=== PATIENT | female | born 1945 | race Caucasian/White ===

== ENCOUNTER 2017-04-09 15:15 | Inpatient (IN) | payer MEDICARE, MEDICAID ==
[2017-04-09 15:46] LABS: pH 7.42 (7.35-7.45)
[2017-04-09 15:47] LABS: ABG SOURCE Arterial; ALLEN TEST PASS; BE(B) 11.6 mEq/L (-3.0-3.0); CRITICAL VALUES REPORTED BY PW; FIO2 21; HCO3 33.6 mEq/L (20.0-26.0)
--- NOTE | 2017-04-09 15:50 | ED Physician Chart ---
Chief Complaint/HPI - Patient Information Date Seen:: 04/09/17 Time Seen:: 15:40 Chief Complaint:: LEFT ANKLE PAIN History of Present Illness:: THIS IS A 72 YO FEMALE SENT FROM THE CUSTODIAL FOR AN EVALUATION OF HER LEFT ANKLE PAIN. THE ANKLE WAS INJURED THE PATIENT WAS BEING MOVED FROM THE BED TO THE CHAIR. SHE IS OBESE AND HAS LUNG DISEASE Allergies:: Allergies Allergy/AdvReac Type Severity Reaction Status Date / Time No Known Allergies Allergy Verified 09/08/16 22:11 Vitals:: Vital Signs - 8 hr 04/09/17 15:37 Temp 98.4 F HR 80 RR 17 BP 144/73 O2 Sat % 85 Historian:: Medical Records Review:: Nurse's Note Reviewed, Old Chart Reviewed, Transfer documents Reviewed Review of Systems - Review of Systems General/Constitutional: No fever, No chills, No weight loss, No weakness, No diaphoresis, No edema, No loss of appetite Skin: No skin lesions, No rash, No bruising Head: No headache, No light-headedness Eyes: No loss of vision, No pain, No diplopia ENT: No earache, No nasal drainage, No sore throat, No tinnitus Neck: No neck pain, No swelling, No thyromegaly, No stiffness, No mass noted Cardio Vascular: No chest pain, No palpitations, No PND, No orthopnea, No edema Pulmonary: SOB, No cough, No sputum, No wheezing GI: No nausea, No vomiting, No diarrhea, No pain, No melena, No hematochezia, No constipation, No hematemesis G/U: No dysuria, No frequency, No hematuria Musculoskeletal: Bone or joint pain (LEFT ANKLE TENDERNESS AND SWELLING.), No back pain, No muscle pain Endocrine: No polyuria, No polydipsia Psychiatric: No prior psych history, No depression, No anxiety, No suicidal ideation Hematopoietic: No bruising, No lymphadenopathy Allergic/Immuno: No urticaria, No angioedema Neurological: No syncope, No focal symptoms, No weakness, No paresthesia, No headache, No seizure, No dizziness, No confusion, No vertigo Past Medical History - Past Medical History Past Medical History: Asthma/COPD, PUD/GERD, Dementia Family History: None Social History: Non Smoker, No Alcohol, No Drug Use, Care Facility Surgical History: None Psychiatricy History: None Medication: Reviewed Family Medical History - Family Member Mother History Unknown: Yes Physical Exam - Physical Examination General/Constitutional: Awake, Well-developed, well-nourished, Alert, No distress, GCS 15, Non-toxic appearing, Ambulatory Other Gen/Cons comments:: CONFUSED Head: Atraumatic Eyes: Lids, conjuctiva normal, PERRL, EOMI Skin: Nl inspection, No rash, No skin lesions, No ecchymosis, Well hydrated, No lymphadenopathy ENMT: External ears, nose nl, Nasal exam nl, Lips, teeth, gums nl Neck: Nontender, Full ROM w/o pain, No JVD, No nuchal rigidity, No bruit, No mass, No stridor Respiratory: Nl effort/Exclusion, Clear to Auscultation, No Wheeze/Rhonchi/Rales Cardio Vascular: RRR, No murmur, gallop, rubs, NL S1 S2 GI: No tenderness/rebounding/guarding, No organomegaly, No hernia, Normal BS's, Nondistended, No mass/bruits, No McBurney tenderness : No CVA tenderness Extremities: Full ROM, normal strength in all extremities, No edema, Normal digits & nails Other Extremities comments:: THE LEFT ANKLE AREA IS TENDER WITH NORMAL ROM. THE LEFT KNEE IS DEFORMED. Neuro/Psych: Alert/oriented, DTR's symmetric, Normal sensory exam, Normal motor strength, Judgement/insight normal, Mood normal, Normal gait, No focal deficits Misc: normal gait, Normal back, No paraspinal tenderness Assessment - Assessment General Assessment: HYPOXEMIA, COPD, CONTUSION OF THE LEFT ANKLE. ED Septic Shock - . Is Septic Shock (SBP<90, OR Lactate>4 mmol\L) present?: No - <6hrs of presentation: Vital Signs: Vital Signs - 8 hr 04/09/17 15:37 Temp 98.4 F HR 80 RR 17 BP 144/73 O2 Sat % 85 Reassessment (Disposition) - Reassessment Reassessment Condition:: Improved - Diagnosis Diagnosis:: HYPOXEMIA CONTUSION OF THE LEFT ANKLE DEMENTIA - Patient Disposition Discharge/Transfer:: Acute Care w/in this hosp Admitting Medical Physician:: Carson Diaz Condition at Disposition:: Improved ED Discharge Plan - Patient Disposition Admit/Discharge/Transfer: Acute Care w/in this hosp Condition at Disposition: Improved
[2017-04-09 16:00] LABS: HEMATOCRIT 30.7 % (35.0-45.0); HEMOGLOBIN 9.9 gm/dL (11.7-16.1); MEAN CELL VOLUME 77.5 fl (81-100); MEAN CORPUSCULAR HEMOGLOBIN 24.9 pg (27.0-31.0); MEAN CORPUSCULAR HGB CONC 32.1 pg (28.0-36.0); MEAN PLATELET VOLUME 7.7 fl; NEUTROPHILE ABSOLUTE 1.9 Th/cmm (1.8-8.0); RED BLOOD COUNT 3.96 Mil/cmm (3.80-5.20); RED CELL DISTRIBUTION WIDTH 15.3 % (11.5-20.0)
[2017-04-09 16:08] LABS: PLATELET COUNT 228 Th/cmm (150-400); WHITE BLOOD COUNT 4.3 Th/cmm (4.8-10.8)
[2017-04-09 16:17] LABS: INR 0.95 (0.5-1.4); PROTHROMBIN TIME (TEST) 9.9 SECONDS (9.5-11.5)
[2017-04-09 16:23] LABS: ALB/GLOB RATIO 1.5 (1.0-1.8); ALKALINE PHOSPHATASE 65 U/L (34-104); ANION GAP 4.4 (7.0-16.0); BILIRUBIN,TOTAL 0.2 mg/dL (0.3-1.0); BUN - UREA NITROGEN 14 mg/dL (7-25); CARBON DIOXIDE 32.8 mEq/L (21.0-31.0); CHLORIDE 98 mEq/L (98-107); CREATININE - SERUM 0.5 mg/dL (0.6-1.2); GLUCOSE 120 mg/dL (70-105); POTASSIUM SERUM 4.2 mEq/L (3.5-5.1); SGOT 13 U/L (13-39); SGPT/ALT 7 U/L (7-52); SODIUM SERUM 131 mEq/L (136-145)
[2017-04-09 16:39] LABS: BAND NEUTROPHILE 2 % (0-10); BASOPHIL 3 % (0-3); EOSINOPHIL 7 % (0-5); MICROCYTOSIS 1+; NEUTROPHILS 50 % (40-80); PLATELET ESTIMATE ADEQUATE (NORMAL); TOTAL CELLS COUNTED 100
[2017-04-09] MEDS ORDERED: Maalox 30 mL Cup PO PRN (18:33)
[2017-04-09 18:50] LABS: URINE BILIRUBIN NEGATIVE (NEGATIVE); URINE BLOOD NEGATIVE (NEGATIVE); URINE COLOR YELLOW; URINE GLUCOSE (UA) NEGATIVE (NEGATIVE); URINE KETONE NEGATIVE (NEGATIVE); URINE PROTEIN NEGATIVE (NEGATIVE); URINE UROBILINOGEN 0.2 E.U./dL (0.2 - 1.0)
[2017-04-09 18:51] LABS: URINE BACTERIA MANY /hpf (NONE SEEN); URINE EPITHELIAL CELLS MANY /lpf (FEW); URINE RBC 0-2 /hpf (0-5); URINE WBC 25-50 /hpf (0-5)
[2017-04-09] MEDS ORDERED: Pneumococcal Vaccine 0.5 mL Vial IM ONE (19:03)
[2017-04-09] MEDS: D5-0.9%NS 1,000 ML IV SCH (19:08)
[2017-04-09] MEDS: Levofloxacin 500mg/100mL 500 MG/100 ML BAG IV SCH (20:50)
[2017-04-09] MEDS: methylPREDNISolone SS 40 mg Vial IVP SCH (20:59)
[2017-04-09] MEDS: Ipratropium Neb 0.5 mg/2.5 mL UD IH SCH (23:31)
[2017-04-09] MEDS: Albuterol Nebulizer 2.5mg/3mL HHN SCH (23:31)
[2017-04-10] MEDS: methylPREDNISolone SS 40 mg Vial IVP SCH ×3 (05:45→22:17)
[2017-04-10] MEDS: Ipratropium Neb 0.5 mg/2.5 mL UD IH SCH ×4 (07:01→20:02)
[2017-04-10] MEDS: Albuterol Nebulizer 2.5mg/3mL HHN SCH ×4 (07:01→20:02)
[2017-04-10] MEDS: Levothyroxine 0.1 Mg Tab PO SCH (07:03)
[2017-04-10] MEDS ORDERED: LEVOTHYROXINE SODIUM 300 MCG PO SCH (09:00)
[2017-04-10] MEDS ORDERED: Non-Formulary Item 1 EA (Tiotropium Bromide [Spiriva] 18 MCG) IH SCH (09:00)
[2017-04-10] MEDS: D5-0.9%NS 1,000 ML IV SCH (09:37)
--- NOTE | 2017-04-10 10:47 | Diagnostic Imaging Report ---
Portable chest x-ray HISTORY: Shortness of breath There is a very poor inspiration. Nonetheless, the heart appears enlarged. No focal pulmonary processes. No definite hilar or mediastinal abnormalities. IMPRESSION: 1. Allowing for a poor inspiration, no acute focal pulmonary processes 2. Cardiomegaly
--- NOTE | 2017-04-10 10:50 | Diagnostic Imaging Report ---
Left ankle (3 views, portable) HISTORY: Pain, trauma The exam demonstrates a comminuted fracture involving the distal fibula and lateral malleolus. Associated soft tissue swelling. Mild displacement. Periosteal reaction noted along the distal shaft of the fibula most likely related to old trauma. Small spur formation noted off the plantar aspect of the posterior calcaneus. IMPRESSION: 1. Comminuted mildly displaced fracture involving the distal fibula and lateral malleolus. 2. Deformity of the distal fibular shaft consistent with changes of old trauma.
--- NOTE | 2017-04-10 14:38 | Internal Medicine Prog Note ---
Internal Medicine Subjective - Subjective Service Date: 04/10/17 ([id number] hnp dictated) Internal Medicine Objective - Results Result Diagrams: 04/09/17 15:50 04/09/17 15:50 Recent Labs: Laboratory Last Values WBC 4.3 Th/cmm (4.8-10.8) L D 04/09/17 15:50 RBC 3.96 Mil/cmm (3.80-5.20) 04/09/17 15:50 Hgb 9.9 gm/dL (11.7-16.1) L 04/09/17 15:50 Hct 30.7 % (35.0-45.0) L 04/09/17 15:50 MCV 77.5 fl (81-100) L 04/09/17 15:50 MCH 24.9 pg (27.0-31.0) L 04/09/17 15:50 MCHC Differential 32.1 pg (28.0-36.0) 04/09/17 15:50 RDW 15.3 % (11.5-20.0) 04/09/17 15:50 Plt Count 228 Th/cmm (150-400) D 04/09/17 15:50 MPV 7.7 fl 04/09/17 15:50 Band Neutrophils % 2 % (0-10) 04/09/17 15:50 Neutrophils (Manual) 50 % (40-80) 04/09/17 15:50 Lymphocytes 27 % (20-50) 04/09/17 15:50 Monocytes 11 % (2-10) H 04/09/17 15:50 Eosinophils 7 % (0-5) H 04/09/17 15:50 Basophils 3 % (0-3) 04/09/17 15:50 Platelet Estimate ADEQUATE (NORMAL) 04/09/17 15:50 Microcytosis 1+ 04/09/17 15:50 RBC Morph Micro Appear ABNORMAL (NORMAL) 04/09/17 15:50 PT 9.9 SECONDS (9.5-11.5) 04/09/17 15:50 INR 0.95 (0.5-1.4) 04/09/17 15:50 PTT (Actin FS) 23.6 SECONDS (26.0-38.0) L 04/09/17 15:50 Specimen Source Arterial 04/09/17 15:39 Sample Site Right Radial 04/09/17 15:39 pH 7.42 (7.35-7.45) 04/09/17 15:39 pCO2 59.0 mmHg (35.0-45.0) H* 04/09/17 15:39 pO2 47.0 mmHg (80.0-100.0) L* 04/09/17 15:39 HCO3 33.6 mEq/L (20.0-26.0) H 04/09/17 15:39 Base Excess 11.6 mEq/L (-3.0-3.0) H 04/09/17 15:39 O2 Saturation 83.0 % (92.0-100.0) L 04/09/17 15:39 Jagjit Test PASS 04/09/17 15:39 Inspired O2 21 04/09/17 15:39 Critical Value PW 04/09/17 15:39 Sodium 131 mEq/L (136-145) L 04/09/17 15:50 Potassium 4.2 mEq/L (3.5-5.1) 04/09/17 15:50 Chloride 98 mEq/L (98-107) 04/09/17 15:50 Carbon Dioxide 32.8 mEq/L (21.0-31.0) H 04/09/17 15:50 Anion Gap 4.4 (7.0-16.0) L 04/09/17 15:50 BUN 14 mg/dL (7-25) 04/09/17 15:50 Creatinine 0.5 mg/dL (0.6-1.2) L 04/09/17 15:50 Est GFR ( Amer) > 60.0 ml/min (>90) 04/09/17 15:50 Est GFR (Non-Af Amer) > 60.0 ml/min 04/09/17 15:50 BUN/Creatinine Ratio 28.0 04/09/17 15:50 Glucose 120 mg/dL (70-105) H 04/09/17 15:50 Calcium 9.0 mg/dL (8.6-10.3) 04/09/17 15:50 Total Bilirubin 0.2 mg/dL (0.3-1.0) L 04/09/17 15:50 AST 13 U/L (13-39) 04/09/17 15:50 ALT 7 U/L (7-52) 04/09/17 15:50 Alkaline Phosphatase 65 U/L (34-104) 04/09/17 15:50 Troponin I < 0.01 ng/mL (0.01-0.05) L 04/09/17 15:50 Total Protein 6.0 gm/dL (6.0-8.3) 04/09/17 15:50 Albumin 3.6 gm/dL (3.7-5.3) L 04/09/17 15:50 Globulin 2.4 gm/dL 04/09/17 15:50 Albumin/Globulin Ratio 1.5 (1.0-1.8) 04/09/17 15:50 TSH 0.65 uIU/ml (0.34-5.60) 04/09/17 15:50 Urine Source CLEAN C 04/09/17 16:47 Urine Color YELLOW 04/09/17 16:47 Urine Clarity CLOUDY (CLEAR) H 04/09/17 16:47 Urine pH 8.0 04/09/17 16:47 Ur Specific [place] 1.010 (1.005-1.030) 04/09/17 16:47 Urine Protein NEGATIVE mg/dL (NEGATIVE) 04/09/17 16:47 Urine Glucose (UA) NEGATIVE mg/dL (NEGATIVE) 04/09/17 16:47 Urine Ketones NEGATIVE mg/dL (NEGATIVE) 04/09/17 16:47 Urine Blood NEGATIVE (NEGATIVE) 04/09/17 16:47 Urine Nitrate NEGATIVE (NEGATIVE) 04/09/17 16:47 Urine Bilirubin NEGATIVE (NEGATIVE) 04/09/17 16:47 Urine Urobilinogen 0.2 E.U./dL (0.2 - 1.0) 04/09/17 16:47 Ur Leukocyte Esterase LARGE (NEGATIVE) H 04/09/17 16:47 Urine RBC 0-2 /hpf (0-5) 04/09/17 16:47 Urine WBC 25-50 /hpf (0-5) H 04/09/17 16:47 Ur Epithelial Cells MANY /lpf (FEW) 04/09/17 16:47 Urine Bacteria MANY /hpf (NONE SEEN) 04/09/17 16:47 - Physical Exam Vitals and I&O: Vital Signs Temp 98.1 F 04/10/17 07:49 Pulse 92 04/10/17 07:49 Resp 18 07/18/17 08:00 BP 137/66 04/10/17 07:49 Pulse Ox 94 04/10/17 07:49 Intake & Output 04/09/17 04/10/17 04/10/17 18:59 06:59 18:59 Intake Total 100 1120 Balance 100 1120 Weight (lbs) 304 lb 304 lb 6.4 oz Intake: Intake, IV Amount 100 1000 D5-0.9%Ns 1,000 ml @ 80 1000 mls/hr IV .[id number] [facility] Rx #:[id number] Levofloxacin 500mg/100mL 100 500 mg In 100 ml @ 100 mls/hr IV Q24HR [facility] Rx#: [id number] Oral 120 Other: # Voids 2 # Bowel Movements 1 Stool Characteristics Soft Soft Formed Formed Active Medications: Current Medications Acetaminophen (Tylenol) 325 mg PO Q6HR PRN PRN Reason: Pain or Fever > 101 Stop: 06/08/17 18:31 Acetaminophen (Tylenol) 650 mg PO Q4HR PRN PRN Reason: Pain or Fever >101 Stop: 06/08/17 18:31 Al Hydrox/Mg Hydrox/Simethicone (Maalox) 30 ml PO Q6H PRN PRN Reason: Dyspepsia Stop: 06/08/17 18:32 Albuterol Sulfate (Albuterol 2.5mg/3ml Neb Ud) 2.5 mg HHN Q6H PRN PRN Reason: sob Stop: 06/08/17 18:31 Albuterol Sulfate (Albuterol 2.5mg/3ml Neb Ud) 2.5 mg HHN QIDRT [facility] Stop: 06/08/17 18:59 Last Admin: 04/10/17 12:28 Dose: 2.5 mg Aspirin (Ecotrin) 81 mg PO DAILY [facility] Stop: 06/09/17 08:59 Last Admin: 04/10/17 09:39 Dose: 81 mg Cholecalciferol (Vitamin D3) 1,000 iu PO DAILY [facility] Stop: 06/09/17 11:59 Last Admin: 04/10/17 11:48 Dose: 1,000 iu Dextrose/Sodium Chloride (D5-0.9%Ns) 1,000 mls @ 80 mls/hr IV .[id number] [facility] Stop: 06/08/17 18:44 Last Admin: 04/10/17 09:37 Dose: 80 mls/hr Levofloxacin (Levaquin Pb) 500 mg in 100 mls @ 100 mls/hr IV Q24HR [facility] Stop: 06/08/17 20:59 Last Infusion: 04/09/17 21:50 Dose: Infused Ipratropium [place] (Atrovent Neb 0.5mg/2.5ml) 0.5 mg IH QIDRT [facility] Stop: 06/08/17 18:59 Last Admin: 04/10/17 12:29 Dose: 0.5 mg Levothyroxine Sodium (Synthroid) 0.3 mg PO QDAC [facility] Stop: 06/09/17 07:29 Last Admin: 04/10/17 07:03 Dose: 0.3 mg Meclizine HCl (Antivert) 25 mg PO DAILY PRN PRN Reason: Nausea / Vomiting Stop: 06/08/17 18:32 Methylprednisolone Sodium Succinate (Solu-Medrol) 80 mg IVP Q8HR [facility] Stop: 06/08/17 20:59 Last Admin: 04/10/17 05:45 Dose: 80 mg Miscellaneous (Tiotropium [place] [Spiriva]) 18 mcg IH DAILY [facility] Stop: 06/09/17 08:59 Ondansetron HCl (Zofran) 4 mg IV Q8H PRN PRN Reason: Nausea / Vomiting Stop: 06/08/17 18:32 Risperidone (Risperdal) 0.5 mg PO BID [place] PRN Reason: Protocol Stop: 06/09/17 08:59 Last Admin: 04/10/17 09:39 Dose: 0.5 mg Sucralfate (Carafate) 1 gm PO ACHS [facility] Stop: 06/08/17 20:59 Last Admin: 04/10/17 11:44 Dose: 1 gm Zolpidem Tartrate (Ambien) 5 mg PO HS PRN PRN Reason: Insomnia Stop: 06/08/17 18:31 Last Admin: 04/09/17 21:00 Dose: 5 mg - Procedures Procedures: Procedures Procedure Code Date EGD BIOPSY SINGLE/MULTIPLE 35310 02/04/14 ESOPHAGOGASTRODUODENOSCOPY [EGD] W/CLOSED BIOPSY 45.16 02/04/14 NON-INVASIVE MECHANICAL VENTILATION 93.90 11/24/10 POS AIRWAY PRESSURE CPAP 83721 11/24/10 Internal Medicine Assmt/Plan - Assessment Assessment: COPD EXACERBATION S/P FALL CONTUSION ACUTE UTI CHRONIC BRONCHITIS GERD WITH ESOPHAGITIS MUSCULAR DYSTROPHY SCHIZOPHRENIA
[2017-04-10] MEDS: Levofloxacin 500mg/100mL 500 MG/100 ML BAG IV SCH (22:18)
[2017-04-11] MEDS: Albuterol Nebulizer 2.5mg/3mL HHN PRN (00:58)
[2017-04-11] MEDS: D5-0.9%NS 1,000 ML IV SCH ×2 (04:57→15:51)
[2017-04-11] MEDS: methylPREDNISolone SS 40 mg Vial IVP SCH ×3 (04:59→22:23)
[2017-04-11] MEDS: Levothyroxine 0.1 Mg Tab PO SCH (06:35)
[2017-04-11 07:02] LABS: HEMATOCRIT 29.9 % (35.0-45.0); HEMOGLOBIN 9.3 gm/dL (11.7-16.1); MEAN CELL VOLUME 78.9 fl (81-100); MEAN CORPUSCULAR HEMOGLOBIN 24.6 pg (27.0-31.0); MEAN CORPUSCULAR HGB CONC 31.1 pg (28.0-36.0); MEAN PLATELET VOLUME 8.2 fl; PLATELET COUNT 260 Th/cmm (150-400); RED BLOOD COUNT 3.79 Mil/cmm (3.80-5.20); RED CELL DISTRIBUTION WIDTH 15.3 % (11.5-20.0)
[2017-04-11 07:35] LABS: ANION GAP 6.5 (7.0-16.0); BUN - UREA NITROGEN 17 mg/dL (7-25); CALCIUM SERUM 8.9 mg/dL (8.6-10.3); CARBON DIOXIDE 31.7 mEq/L (21.0-31.0); CHLORIDE 100 mEq/L (98-107); CREATININE - SERUM 0.5 mg/dL (0.6-1.2); GLUCOSE 164 mg/dL (70-105); POTASSIUM SERUM 4.2 mEq/L (3.5-5.1); SODIUM SERUM 134 mEq/L (136-145)
[2017-04-11] MEDS: Albuterol Nebulizer 2.5mg/3mL HHN SCH ×4 (08:04→19:10)
[2017-04-11] MEDS: Ipratropium Neb 0.5 mg/2.5 mL UD IH SCH ×4 (08:04→19:09)
[2017-04-11 08:11] LABS: WHITE BLOOD COUNT 6.4 Th/cmm (4.8-10.8)
[2017-04-11 08:58] LABS: BAND NEUTROPHILE 10 % (0-10); EOSINOPHIL 1 % (0-5); MICROCYTOSIS 1+; NEUTROPHILS 75 % (40-80); PLATELET ESTIMATE ADEQUATE (NORMAL); TOTAL CELLS COUNTED 100
[2017-04-11 08:59] LABS: PLATELET MORPHOLOGY NORMAL (NORMAL)
[2017-04-11] MEDS ORDERED: Ipratropium Neb 0.5 mg/2.5 mL UD HHN SCH (11:00)
--- NOTE | 2017-04-11 12:18 | History and Physical ---
History of Present Illness - HPI Chief Complaint: left ankle pain and sob HPI: THIS IS A 72 YR OLD FEMALE RESIDENT OF [facility]. ACCORDING TO NURSING STAFF AT [facility] PATIENT WAS BEING MOVED FROM THE BED TO THE CHAIR AND INJURED HER RIGHT ANKLE ON THE BED RAIL PATIENT WAS NOTED TO HAVE SOB WELL FOR THIS REASON PATIENT IS ADMITTED TO THE [facility]. Vital Signs: Last Vital Signs Temp 98.4 F 04/11/17 04:00 Pulse 84 04/11/17 08:04 Resp 20 04/11/17 08:04 BP 121/82 04/11/17 04:00 Pulse Ox 92 04/11/17 08:04 Past Medical History Cardiovascular: Report: No Pertinent Hx Pulmonary: Report: COPD ENGINE WIPER: Report: No Pertinent Hx GI: Report: GERD Psych: Report: Psychosis, Schizophrenia Musculoskeletal: Report: Other (MUSCLE WEAKNESS) Infectious Disease: Report: No Pertinent Hx Renal/: Report: UTI Dermatology: Report: No Pertinent Hx Family Medical History - Family Member Mother History Unknown: Yes (NONCONTRIBUTORY) Social History Smoke: No Alcohol: None Drugs: None Lives: Alf Health Maintenance Health Maintenance: Pneumococcal Vaccine - Medications Home Medications: Home Medication Medication Instructions Recorded Type Levothyroxine Sodium [Synthroid] 300 mcg PO QAM 09/08/16 History Tiotropium [place] [Spiriva] 18 mcg IH DAILY 09/08/16 History Acetaminophen [Tylenol] 650 mg PO Q4HR PRN #0 tab 09/12/16 Rx Levothyroxine [Synthroid] 0.3 mg PO QDAC #0 tab 09/12/16 Rx Sucralfate [Carafate] 1 gm PO ACHS #0 tab 09/12/16 Rx risperiDONE [RisperDAL] 0.5 mg PO BID #0 tab 09/12/16 Rx Acetaminophen [Tylenol] 325 mg PO Q6HR PRN 04/09/17 History Albuterol Nebulizer 2.5mg/3mL 2.5 mg HHN Q6H PRN 04/09/17 History [Albuterol Neb UD*] Cholecalciferol (Vitamin D3) 1 tab PO DAILY 04/09/17 History [Vitamin D3] Zolpidem Tartrate [Ambien] 5 mg PO HS PRN 04/09/17 History - Allergies Allergies/Adverse Reactions: Allergies Allergy/AdvReac Type Severity Reaction Status Date / Time No Known Allergies Allergy Verified 09/08/16 22:11 Review of Systems - Review of Systems Constitutional: Denies: Fever, Chills Eyes: Denies: Pain, Vision Change ENT: Denies: Ear Pain, Ear Discharge, Nose Pain Respiratory: Report: Shortness of Breath Cardiovascular: Denies: Chest Pain Gastrointestinal: Denies: No Significant Genitourinary: Denies: Dysuria, Frequency Musculoskeletal: Report: Foot Pain Skin: Report: No Significant. Denies: Rash Neurological: Denies: Weakness Physical Exam - Physical Exam HEENT: Report: Ears Nose Throat within normal limits Neck: Report: Within normal limits Cardiovascular Systems: Report: +s1/s2 noted Respiratory: Report: Rhonchi Abdomen: Report: Non-tender to palpation Back: Report: Inspection of back is within normal limits. Extremities: Report: Non-tender to palpation. Skin: Report: Warm, Dry Neuro/Psych: Report: Mood affect is within normal limits, A+Ox3 - Lab Results All Lab Results last 24 hours: Laboratory Last Values WBC 6.4 Th/cmm (4.8-10.8) D 04/11/17 06:25 RBC 3.79 Mil/cmm (3.80-5.20) L 04/11/17 06:25 Hgb 9.3 gm/dL (11.7-16.1) L 04/11/17 06:25 Hct 29.9 % (35.0-45.0) L 04/11/17 06:25 MCV 78.9 fl (81-100) L 04/11/17 06:25 MCH 24.6 pg (27.0-31.0) L 04/11/17 06:25 MCHC Differential 31.1 pg (28.0-36.0) 04/11/17 06:25 RDW 15.3 % (11.5-20.0) 04/11/17 06:25 Plt Count 260 Th/cmm (150-400) 04/11/17 06:25 MPV 8.2 fl 04/11/17 06:25 Band Neutrophils % 10 % (0-10) 04/11/17 06:25 Neutrophils (Manual) 75 % (40-80) 04/11/17 06:25 Lymphocytes 11 % (20-50) L 04/11/17 06:25 Monocytes 3 % (2-10) 04/11/17 06:25 Eosinophils 1 % (0-5) 04/11/17 06:25 Basophils 3 % (0-3) 04/09/17 15:50 Platelet Estimate ADEQUATE (NORMAL) 04/11/17 06:25 Platelet Morphology NORMAL (NORMAL) 04/11/17 06:25 Microcytosis 1+ 04/11/17 06:25 RBC Morph Micro Appear ABNORMAL (NORMAL) 04/11/17 06:25 PT 9.9 SECONDS (9.5-11.5) 04/09/17 15:50 INR 0.95 (0.5-1.4) 04/09/17 15:50 PTT (Actin FS) 23.6 SECONDS (26.0-38.0) L 04/09/17 15:50 Specimen Source Arterial 04/09/17 15:39 Sample Site Right Radial 04/09/17 15:39 pH 7.42 (7.35-7.45) 04/09/17 15:39 pCO2 59.0 mmHg (35.0-45.0) H* 04/09/17 15:39 pO2 47.0 mmHg (80.0-100.0) L* 04/09/17 15:39 HCO3 33.6 mEq/L (20.0-26.0) H 04/09/17 15:39 Base Excess 11.6 mEq/L (-3.0-3.0) H 04/09/17 15:39 O2 Saturation 83.0 % (92.0-100.0) L 04/09/17 15:39 Jagjit Test PASS 04/09/17 15:39 Inspired O2 21 04/09/17 15:39 Critical Value PW 04/09/17 15:39 Sodium 134 mEq/L (136-145) L 04/11/17 06:25 Potassium 4.2 mEq/L (3.5-5.1) 04/11/17 06:25 Chloride 100 mEq/L (98-107) 04/11/17 06:25 Carbon Dioxide 31.7 mEq/L (21.0-31.0) H 04/11/17 06:25 Anion Gap 6.5 (7.0-16.0) L 04/11/17 06:25 BUN 17 mg/dL (7-25) 04/11/17 06:25 Creatinine 0.5 mg/dL (0.6-1.2) L 04/11/17 06:25 Est GFR ( Amer) > 60.0 ml/min (>90) 04/11/17 06:25 Est GFR (Non-Af Amer) > 60.0 ml/min 04/11/17 06:25 BUN/Creatinine Ratio 34.0 04/11/17 06:25 Glucose 164 mg/dL (70-105) H 04/11/17 06:25 Calcium 8.9 mg/dL (8.6-10.3) 04/11/17 06:25 Total Bilirubin 0.2 mg/dL (0.3-1.0) L 04/09/17 15:50 AST 13 U/L (13-39) 04/09/17 15:50 ALT 7 U/L (7-52) 04/09/17 15:50 Alkaline Phosphatase 65 U/L (34-104) 04/09/17 15:50 Troponin I < 0.01 ng/mL (0.01-0.05) L 04/09/17 15:50 Total Protein 6.0 gm/dL (6.0-8.3) 04/09/17 15:50 Albumin 3.6 gm/dL (3.7-5.3) L 04/09/17 15:50 Globulin 2.4 gm/dL 04/09/17 15:50 Albumin/Globulin Ratio 1.5 (1.0-1.8) 04/09/17 15:50 TSH 0.65 uIU/ml (0.34-5.60) 04/09/17 15:50 Urine Source CLEAN C 04/09/17 16:47 Urine Color YELLOW 04/09/17 16:47 Urine Clarity CLOUDY (CLEAR) H 04/09/17 16:47 Urine pH 8.0 04/09/17 16:47 Ur Specific [place] 1.010 (1.005-1.030) 04/09/17 16:47 Urine Protein NEGATIVE mg/dL (NEGATIVE) 04/09/17 16:47 Urine Glucose (UA) NEGATIVE mg/dL (NEGATIVE) 04/09/17 16:47 Urine Ketones NEGATIVE mg/dL (NEGATIVE) 04/09/17 16:47 Urine Blood NEGATIVE (NEGATIVE) 04/09/17 16:47 Urine Nitrate NEGATIVE (NEGATIVE) 04/09/17 16:47 Urine Bilirubin NEGATIVE (NEGATIVE) 04/09/17 16:47 Urine Urobilinogen 0.2 E.U./dL (0.2 - 1.0) 04/09/17 16:47 Ur Leukocyte Esterase LARGE (NEGATIVE) H 04/09/17 16:47 Urine RBC 0-2 /hpf (0-5) 04/09/17 16:47 Urine WBC 25-50 /hpf (0-5) H 04/09/17 16:47 Ur Epithelial Cells MANY /lpf (FEW) 04/09/17 16:47 Urine Bacteria MANY /hpf (NONE SEEN) 04/09/17 16:47 Laboratory Results - last 24 hr 04/11/17 04/11/17 06:25 06:25 WBC 6.4 D RBC 3.79 L Hgb 9.3 L Hct 29.9 L MCV 78.9 L MCH 24.6 L MCHC Differential 31.1 RDW 15.3 Plt Count 260 MPV 8.2 Band Neutrophils % 10 Neutrophils (Manual) 75 Lymphocytes 11 L Monocytes 3 Eosinophils 1 Platelet Estimate ADEQUATE Platelet Morphology NORMAL Microcytosis 1+ RBC Morph Micro Appear ABNORMAL Sodium 134 L Potassium 4.2 Chloride 100 Carbon Dioxide 31.7 H Anion Gap 6.5 L BUN 17 Creatinine 0.5 L Est GFR ( Amer) > 60.0 Est GFR (Non-Af Amer) > 60.0 BUN/Creatinine Ratio 34.0 Glucose 164 H Calcium 8.9 - Assessment Assessment: COPD EXACERBATION S/P FALL CONTUSION ACUTE UTI CHRONIC BRONCHITIS GERD WITH ESOPHAGITIS MUSCULAR DYSTROPHY SCHIZOPHRENIA - Plan Plan: EMPIRIC IV ANTIBIOTICS BRONCHODILATORS ORTHO CONSULT FALL PRECAUTIONS CPM
--- NOTE | 2017-04-11 12:32 | Internal Medicine Prog Note ---
Internal Medicine Subjective - Subjective Service Date: 04/11/17 (STILL C/O LEFT ANKLE PAIN ) Patient seen and examined:: with staff Patient is:: awake Patient Complaints of:: headache Internal Medicine Objective - Results Result Diagrams: 04/11/17 06:25 04/11/17 06:25 Recent Labs: Laboratory Last Values WBC 6.4 Th/cmm (4.8-10.8) D 04/11/17 06:25 RBC 3.79 Mil/cmm (3.80-5.20) L 04/11/17 06:25 Hgb 9.3 gm/dL (11.7-16.1) L 04/11/17 06:25 Hct 29.9 % (35.0-45.0) L 04/11/17 06:25 MCV 78.9 fl (81-100) L 04/11/17 06:25 MCH 24.6 pg (27.0-31.0) L 04/11/17 06:25 MCHC Differential 31.1 pg (28.0-36.0) 04/11/17 06:25 RDW 15.3 % (11.5-20.0) 04/11/17 06:25 Plt Count 260 Th/cmm (150-400) 04/11/17 06:25 MPV 8.2 fl 04/11/17 06:25 Band Neutrophils % 10 % (0-10) 04/11/17 06:25 Neutrophils (Manual) 75 % (40-80) 04/11/17 06:25 Lymphocytes 11 % (20-50) L 04/11/17 06:25 Monocytes 3 % (2-10) 04/11/17 06:25 Eosinophils 1 % (0-5) 04/11/17 06:25 Basophils 3 % (0-3) 04/09/17 15:50 Platelet Estimate ADEQUATE (NORMAL) 04/11/17 06:25 Platelet Morphology NORMAL (NORMAL) 04/11/17 06:25 Microcytosis 1+ 04/11/17 06:25 RBC Morph Micro Appear ABNORMAL (NORMAL) 04/11/17 06:25 PT 9.9 SECONDS (9.5-11.5) 04/09/17 15:50 INR 0.95 (0.5-1.4) 04/09/17 15:50 PTT (Actin FS) 23.6 SECONDS (26.0-38.0) L 04/09/17 15:50 Specimen Source Arterial 04/09/17 15:39 Sample Site Right Radial 04/09/17 15:39 pH 7.42 (7.35-7.45) 04/09/17 15:39 pCO2 59.0 mmHg (35.0-45.0) H* 04/09/17 15:39 pO2 47.0 mmHg (80.0-100.0) L* 04/09/17 15:39 HCO3 33.6 mEq/L (20.0-26.0) H 04/09/17 15:39 Base Excess 11.6 mEq/L (-3.0-3.0) H 04/09/17 15:39 O2 Saturation 83.0 % (92.0-100.0) L 04/09/17 15:39 Jagjit Test PASS 04/09/17 15:39 Inspired O2 21 04/09/17 15:39 Critical Value PW 04/09/17 15:39 Sodium 134 mEq/L (136-145) L 04/11/17 06:25 Potassium 4.2 mEq/L (3.5-5.1) 04/11/17 06:25 Chloride 100 mEq/L (98-107) 04/11/17 06:25 Carbon Dioxide 31.7 mEq/L (21.0-31.0) H 04/11/17 06:25 Anion Gap 6.5 (7.0-16.0) L 04/11/17 06:25 BUN 17 mg/dL (7-25) 04/11/17 06:25 Creatinine 0.5 mg/dL (0.6-1.2) L 04/11/17 06:25 Est GFR ( Amer) > 60.0 ml/min (>90) 04/11/17 06:25 Est GFR (Non-Af Amer) > 60.0 ml/min 04/11/17 06:25 BUN/Creatinine Ratio 34.0 04/11/17 06:25 Glucose 164 mg/dL (70-105) H 04/11/17 06:25 Calcium 8.9 mg/dL (8.6-10.3) 04/11/17 06:25 Total Bilirubin 0.2 mg/dL (0.3-1.0) L 04/09/17 15:50 AST 13 U/L (13-39) 04/09/17 15:50 ALT 7 U/L (7-52) 04/09/17 15:50 Alkaline Phosphatase 65 U/L (34-104) 04/09/17 15:50 Troponin I < 0.01 ng/mL (0.01-0.05) L 04/09/17 15:50 Total Protein 6.0 gm/dL (6.0-8.3) 04/09/17 15:50 Albumin 3.6 gm/dL (3.7-5.3) L 04/09/17 15:50 Globulin 2.4 gm/dL 04/09/17 15:50 Albumin/Globulin Ratio 1.5 (1.0-1.8) 04/09/17 15:50 TSH 0.65 uIU/ml (0.34-5.60) 04/09/17 15:50 Urine Source CLEAN C 04/09/17 16:47 Urine Color YELLOW 04/09/17 16:47 Urine Clarity CLOUDY (CLEAR) H 04/09/17 16:47 Urine pH 8.0 04/09/17 16:47 Ur Specific [place] 1.010 (1.005-1.030) 04/09/17 16:47 Urine Protein NEGATIVE mg/dL (NEGATIVE) 04/09/17 16:47 Urine Glucose (UA) NEGATIVE mg/dL (NEGATIVE) 04/09/17 16:47 Urine Ketones NEGATIVE mg/dL (NEGATIVE) 04/09/17 16:47 Urine Blood NEGATIVE (NEGATIVE) 04/09/17 16:47 Urine Nitrate NEGATIVE (NEGATIVE) 04/09/17 16:47 Urine Bilirubin NEGATIVE (NEGATIVE) 04/09/17 16:47 Urine Urobilinogen 0.2 E.U./dL (0.2 - 1.0) 04/09/17 16:47 Ur Leukocyte Esterase LARGE (NEGATIVE) H 04/09/17 16:47 Urine RBC 0-2 /hpf (0-5) 04/09/17 16:47 Urine WBC 25-50 /hpf (0-5) H 04/09/17 16:47 Ur Epithelial Cells MANY /lpf (FEW) 04/09/17 16:47 Urine Bacteria MANY /hpf (NONE SEEN) 04/09/17 16:47 - Physical Exam Vitals and I&O: Vital Signs Temp 98.4 F 04/11/17 04:00 Pulse 84 04/11/17 08:04 Resp 20 04/11/17 08:04 BP 121/82 04/11/17 04:00 Pulse Ox 92 04/11/17 08:04 Intake & Output 04/10/17 04/11/17 04/11/17 18:59 06:59 18:59 Intake Total 2370 1160 Balance 2370 1160 Weight (lbs) 304 lb 6 oz 306 lb 2 oz Intake: Intake, IV Amount 1000 1000 D5-0.9%Ns 1,000 ml @ 80 1000 1000 mls/hr IV .[id number] [facility] Rx #:[id number] Oral 1370 160 Other: # Voids 4 2 # Bowel Movements 1 0 Stool Characteristics Soft Soft Formed Formed Active Medications: Current Medications Acetaminophen (Tylenol) 325 mg PO Q6HR PRN PRN Reason: Pain or Fever > 101 Stop: 06/08/17 18:31 Acetaminophen (Tylenol) 650 mg PO Q4HR PRN PRN Reason: Pain or Fever >101 Stop: 06/08/17 18:31 Al Hydrox/Mg Hydrox/Simethicone (Maalox) 30 ml PO Q6H PRN PRN Reason: Dyspepsia Stop: 06/08/17 18:32 Last Admin: 04/11/17 02:54 Dose: 30 ml Albuterol Sulfate (Albuterol 2.5mg/3ml Neb Ud) 2.5 mg HHN Q6H PRN PRN Reason: sob Stop: 06/08/17 18:31 Last Admin: 04/11/17 00:58 Dose: 2.5 mg Albuterol Sulfate (Albuterol 2.5mg/3ml Neb Ud) 2.5 mg HHN QIDRT [facility] Stop: 06/08/17 18:59 Last Admin: 04/11/17 08:04 Dose: 2.5 mg Aspirin (Ecotrin) 81 mg PO DAILY [facility] Stop: 06/09/17 08:59 Last Admin: 04/11/17 09:31 Dose: 81 mg Cholecalciferol (Vitamin D3) 1,000 iu PO DAILY [facility] Stop: 06/09/17 11:59 Last Admin: 04/11/17 09:31 Dose: 1,000 iu Heparin Sodium (Porcine) (Heparin) 5,000 units SUBQ Q12HR [facility] Stop: 06/09/17 20:59 Last Admin: 04/11/17 09:31 Dose: 5,000 units Dextrose/Sodium Chloride (D5-0.9%Ns) 1,000 mls @ 80 mls/hr IV .[id number] [facility] Stop: 06/08/17 18:44 Last Admin: 04/11/17 04:57 Dose: 80 mls/hr Levofloxacin (Levaquin Pb) 500 mg in 100 mls @ 100 mls/hr IV Q24HR [facility] Stop: 06/08/17 20:59 Last Admin: 04/10/17 22:18 Dose: 100 mls/hr Ipratropium [place] (Atrovent Neb 0.5mg/2.5ml) 0.5 mg IH QIDRT [facility] Stop: 06/08/17 18:59 Last Admin: 04/11/17 08:04 Dose: 0.5 mg Ipratropium [place] (Atrovent Neb 0.5mg/2.5ml) 0.5 mg HHN QIDRT [facility] Stop: 06/10/17 10:59 Levothyroxine Sodium (Synthroid) 0.3 mg PO QDAC [facility] Stop: 06/09/17 07:29 Last Admin: 04/11/17 06:35 Dose: 0.3 mg Meclizine HCl (Antivert) 25 mg PO DAILY PRN PRN Reason: Nausea / Vomiting Stop: 06/08/17 18:32 Methylprednisolone Sodium Succinate (Solu-Medrol) 80 mg IVP Q8HR [facility] Stop: 06/08/17 20:59 Last Admin: 04/11/17 04:59 Dose: 80 mg Ondansetron HCl (Zofran) 4 mg IV Q8H PRN PRN Reason: Nausea / Vomiting Stop: 06/08/17 18:32 Risperidone (Risperdal) 0.5 mg PO BID [facility] PRN Reason: Protocol Stop: 06/09/17 08:59 Last Admin: 04/11/17 09:31 Dose: 0.5 mg Sucralfate (Carafate) 1 gm PO ACHS [facility] Stop: 06/08/17 20:59 Last Admin: 04/11/17 06:35 Dose: 1 gm Zolpidem Tartrate (Ambien) 5 mg PO HS PRN PRN Reason: Insomnia Stop: 06/08/17 18:31 Last Admin: 04/09/17 21:00 Dose: 5 mg - Procedures Procedures: Procedures Procedure Code Date EGD BIOPSY SINGLE/MULTIPLE 86179 02/04/14 ESOPHAGOGASTRODUODENOSCOPY [EGD] W/CLOSED BIOPSY 45.16 02/04/14 NON-INVASIVE MECHANICAL VENTILATION 93.90 11/24/10 POS AIRWAY PRESSURE CPAP 11584 11/24/10 Internal Medicine Assmt/Plan - Assessment Assessment: COPD EXACERBATION S/P FALL CONTUSION ACUTE UTI CHRONIC BRONCHITIS GERD WITH ESOPHAGITIS MUSCULAR DYSTROPHY SCHIZOPHRENIA - Plan Plan: EMPIRIC IV ANTIBIOTICS BRONCHODILATORS ORTHO CONSULT FALL PRECAUTIONS CPM Nutritional Asmnt/Malnutr-PDOC - Dietary Evaluation Malnutrition Findings (Please click <Entered> for more info): Nutritional Asmnt/Malnutrition Start: 04/10/17 15: 14 Text: Status: Complete Freq: Document 04/10/17 15:14 GSUN (Rec: 04/10/17 15:40 [facility] Nutritional Asmnt/Malnutrition Patient General Information Nutritional Screening High Risk Screening Diagnosis COPD exacerbation, s/p fall contusion, acute UTI, chronic bronchitis Pertinent Medical Hx/Surgical Hx GERD with esophagitis, muscular dystrophy, schizophrenia ER: asthma/COPD, PUD/GERD, dementia Subjective Information 72 year old female from SNF. Diet order "pureed, ground," FNS provided pureed diet as safer option. Pt's diet order at [facility]: ground, [place] thick. Informed RN Dylan of diet order clarification needed, diet roder changed to pureed. Visited pt during lunch time, observed pt tolerating pureed diet well, 50% finished at time of visit. Pt is edentulous. Pt stated the food is good, denied nutritional concerns at this time, stated usually good appetite, enjoys food. Pt is a questionable historian, went off topic a lot and at times difficult to understand. Pt appeared obese, pt does not know UBW. Current Diet Order/ Nutrition Support Pureed, [place] thick liquids Pertinent Medications Vitamin D3, D5-0.9%ns, Synthroid, Solu-Medrol, Zofran Pertinent Labs Reviewed. Glucose 120H. Nutritional Hx/Data Height 5 ft 5 in Height (Calculated Centimeters) 165.1 Current Weight (lbs) 304 lb Weight (Calculated Kilograms) 137.9 Weight (Calculated Grams) 952864.1 [place] Body Weight 125 Weight Status Morbidly Obese GI Symptoms Food Allergies No Usual diet at home [facility]: ground, [place] thick Current %PO Good (75-100%) Estimated Nutritional Goals BEE in Kcals: Adj wt of IBW Calories/Kcals/Kg AdjBW 170lb/77.2kg Kcals Calculated 1930-2316kcal (25-30kcal/kg) Protein: Adj wt of IBW Protein Calculated 77g (1g/kg) Fluid: ml 1930-2316ml (1ml/kcal) Nutritional Problem 1. Problem Problem Malnutrition related to Etiology unknown etiology, energy imbalance aeb Signs/Symptoms: morbid obesity, BMI 50.7 Malnutrition Related to Morbid Obesity Malnutrition related to morbid obesity BMI> or equal to 40 Query Text:(Any 1 Criteria met) Malnutrition related to morbid obesity Yes Intervention/Recommendation Comments 1. Continue with current diet order. Pt noted with good appetite. Expected Outcomes/Goals Expected Outcomes/Goals 1. PO intake to meet at least 75% of estimated nutritional needs.
[2017-04-11] MEDS: Levofloxacin 500mg/100mL 500 MG/100 ML BAG IV SCH (22:20)
[2017-04-12] MEDS: methylPREDNISolone SS 40 mg Vial IVP SCH ×3 (06:29→22:13)
[2017-04-12 07:13] LABS: HEMATOCRIT 27.8 % (35.0-45.0); HEMOGLOBIN 8.8 gm/dL (11.7-16.1); MEAN CELL VOLUME 78.9 fl (81-100); MEAN CORPUSCULAR HGB CONC 31.7 pg (28.0-36.0); MEAN PLATELET VOLUME 8.3 fl; PLATELET COUNT 257 Th/cmm (150-400); RED BLOOD COUNT 3.52 Mil/cmm (3.80-5.20); RED CELL DISTRIBUTION WIDTH 15.9 % (11.5-20.0); WHITE BLOOD COUNT 6.2 Th/cmm (4.8-10.8)
[2017-04-12 07:16] LABS: ANION GAP 3.2 (7.0-16.0); BUN - UREA NITROGEN 20 mg/dL (7-25); CALCIUM SERUM 8.8 mg/dL (8.6-10.3); CARBON DIOXIDE 34.2 mEq/L (21.0-31.0); CHLORIDE 102 mEq/L (98-107); CREATININE - SERUM 0.4 mg/dL (0.6-1.2); GLUCOSE 139 mg/dL (70-105); POTASSIUM SERUM 4.4 mEq/L (3.5-5.1); SODIUM SERUM 135 mEq/L (136-145)
[2017-04-12] MEDS: Ipratropium Neb 0.5 mg/2.5 mL UD IH SCH ×4 (07:43→19:45)
[2017-04-12] MEDS: Albuterol Nebulizer 2.5mg/3mL HHN SCH ×4 (07:43→19:46)
[2017-04-12] MEDS: Levothyroxine 0.1 Mg Tab PO SCH (09:02)
[2017-04-12] MEDS: D5-0.9%NS 1,000 ML IV SCH (09:02)
[2017-04-12 09:47] LABS: BAND NEUTROPHILE 6 % (0-10); NEUTROPHILS 82 % (40-80); TOTAL CELLS COUNTED 100
[2017-04-12 09:48] LABS: ANISOCYTOSIS 1+; MICROCYTOSIS 1+; PLATELET ESTIMATE ADEQUATE (NORMAL); PLATELET MORPHOLOGY NORMAL (NORMAL)
--- NOTE | 2017-04-12 12:08 | Internal Medicine Prog Note ---
Internal Medicine Subjective - Subjective Service Date: 04/12/17 (STILL C/O LEFT ANKLE PAIN ) Patient is:: awake Patient Complaints of:: headache Per staff patient has:: other (LEFT ANKLE PAIN) Internal Medicine Objective - Results Result Diagrams: 04/12/17 05:55 04/12/17 05:55 Recent Labs: Laboratory Last Values WBC 6.2 Th/cmm (4.8-10.8) 04/12/17 05:55 RBC 3.52 Mil/cmm (3.80-5.20) L 04/12/17 05:55 Hgb 8.8 gm/dL (11.7-16.1) L 04/12/17 05:55 Hct 27.8 % (35.0-45.0) L 04/12/17 05:55 MCV 78.9 fl (81-100) L 04/12/17 05:55 MCH 25.0 pg (27.0-31.0) L 04/12/17 05:55 MCHC Differential 31.7 pg (28.0-36.0) 04/12/17 05:55 RDW 15.9 % (11.5-20.0) 04/12/17 05:55 Plt Count 257 Th/cmm (150-400) 04/12/17 05:55 MPV 8.3 fl 04/12/17 05:55 Band Neutrophils % 6 % (0-10) 04/12/17 05:55 Neutrophils (Manual) 82 % (40-80) H 04/12/17 05:55 Lymphocytes 7 % (20-50) L 04/12/17 05:55 Monocytes 5 % (2-10) 04/12/17 05:55 Eosinophils 1 % (0-5) 04/11/17 06:25 Basophils 3 % (0-3) 04/09/17 15:50 Platelet Estimate ADEQUATE (NORMAL) 04/12/17 05:55 Platelet Morphology NORMAL (NORMAL) 04/12/17 05:55 Anisocytosis 1+ 04/12/17 05:55 Microcytosis 1+ 04/12/17 05:55 RBC Morph Micro Appear ABNORMAL (NORMAL) 04/12/17 05:55 PT 9.9 SECONDS (9.5-11.5) 04/09/17 15:50 INR 0.95 (0.5-1.4) 04/09/17 15:50 PTT (Actin FS) 23.6 SECONDS (26.0-38.0) L 04/09/17 15:50 Specimen Source Arterial 04/09/17 15:39 Sample Site Right Radial 04/09/17 15:39 pH 7.42 (7.35-7.45) 04/09/17 15:39 pCO2 59.0 mmHg (35.0-45.0) H* 04/09/17 15:39 pO2 47.0 mmHg (80.0-100.0) L* 04/09/17 15:39 HCO3 33.6 mEq/L (20.0-26.0) H 04/09/17 15:39 Base Excess 11.6 mEq/L (-3.0-3.0) H 04/09/17 15:39 O2 Saturation 83.0 % (92.0-100.0) L 04/09/17 15:39 Jagjit Test PASS 04/09/17 15:39 Inspired O2 21 04/09/17 15:39 Critical Value PW 04/09/17 15:39 Sodium 135 mEq/L (136-145) L 04/12/17 05:55 Potassium 4.4 mEq/L (3.5-5.1) 04/12/17 05:55 Chloride 102 mEq/L (98-107) 04/12/17 05:55 Carbon Dioxide 34.2 mEq/L (21.0-31.0) H 04/12/17 05:55 Anion Gap 3.2 (7.0-16.0) L 04/12/17 05:55 BUN 20 mg/dL (7-25) 04/12/17 05:55 Creatinine 0.4 mg/dL (0.6-1.2) L 04/12/17 05:55 Est GFR ( Amer) > 60.0 ml/min (>90) 04/12/17 05:55 Est GFR (Non-Af Amer) > 60.0 ml/min 04/12/17 05:55 BUN/Creatinine Ratio 50.0 04/12/17 05:55 Glucose 139 mg/dL (70-105) H 04/12/17 05:55 Calcium 8.8 mg/dL (8.6-10.3) 04/12/17 05:55 Total Bilirubin 0.2 mg/dL (0.3-1.0) L 04/09/17 15:50 AST 13 U/L (13-39) 04/09/17 15:50 ALT 7 U/L (7-52) 04/09/17 15:50 Alkaline Phosphatase 65 U/L (34-104) 04/09/17 15:50 Troponin I < 0.01 ng/mL (0.01-0.05) L 04/09/17 15:50 Total Protein 6.0 gm/dL (6.0-8.3) 04/09/17 15:50 Albumin 3.6 gm/dL (3.7-5.3) L 04/09/17 15:50 Globulin 2.4 gm/dL 04/09/17 15:50 Albumin/Globulin Ratio 1.5 (1.0-1.8) 04/09/17 15:50 TSH 0.65 uIU/ml (0.34-5.60) 04/09/17 15:50 Urine Source CLEAN C 04/09/17 16:47 Urine Color YELLOW 04/09/17 16:47 Urine Clarity CLOUDY (CLEAR) H 04/09/17 16:47 Urine pH 8.0 04/09/17 16:47 Ur Specific [place] 1.010 (1.005-1.030) 04/09/17 16:47 Urine Protein NEGATIVE mg/dL (NEGATIVE) 04/09/17 16:47 Urine Glucose (UA) NEGATIVE mg/dL (NEGATIVE) 04/09/17 16:47 Urine Ketones NEGATIVE mg/dL (NEGATIVE) 04/09/17 16:47 Urine Blood NEGATIVE (NEGATIVE) 04/09/17 16:47 Urine Nitrate NEGATIVE (NEGATIVE) 04/09/17 16:47 Urine Bilirubin NEGATIVE (NEGATIVE) 04/09/17 16:47 Urine Urobilinogen 0.2 E.U./dL (0.2 - 1.0) 04/09/17 16:47 Ur Leukocyte Esterase LARGE (NEGATIVE) H 04/09/17 16:47 Urine RBC 0-2 /hpf (0-5) 04/09/17 16:47 Urine WBC 25-50 /hpf (0-5) H 04/09/17 16:47 Ur Epithelial Cells MANY /lpf (FEW) 04/09/17 16:47 Urine Bacteria MANY /hpf (NONE SEEN) 04/09/17 16:47 - Physical Exam Vitals and I&O: Vital Signs Temp 97.7 F 04/12/17 08:00 Pulse 69 04/12/17 08:00 Resp 18 04/12/17 08:00 BP 141/69 04/12/17 08:00 Pulse Ox 94 04/12/17 08:00 Intake & Output 04/11/17 04/12/17 04/12/17 18:59 06:59 18:59 Intake Total 9007 261 0757 Balance 1869 101 4699 Weight (lbs) 306 lb 2 oz 306 lb 12.8 oz Intake: Intake, IV Amount 1000 D5-0.9%Ns 1,000 ml @ 60 1000 mls/hr IV .[id number] [facility] Rx #:[id number] Oral 1250 300 Other: # Voids 4 # Bowel Movements 1 Stool Characteristics Soft Soft Formed Formed Active Medications: Current Medications Acetaminophen (Tylenol) 325 mg PO Q6HR PRN PRN Reason: Pain or Fever > 101 Stop: 06/08/17 18:31 Acetaminophen (Tylenol) 650 mg PO Q4HR PRN PRN Reason: Pain or Fever >101 Stop: 06/08/17 18:31 Al Hydrox/Mg Hydrox/Simethicone (Maalox) 30 ml PO Q6H PRN PRN Reason: Dyspepsia Stop: 06/08/17 18:32 Last Admin: 04/11/17 02:54 Dose: 30 ml Albuterol Sulfate (Albuterol 2.5mg/3ml Neb Ud) 2.5 mg HHN Q6H PRN PRN Reason: sob Stop: 06/08/17 18:31 Last Admin: 04/11/17 00:58 Dose: 2.5 mg Albuterol Sulfate (Albuterol 2.5mg/3ml Neb Ud) 2.[address] [facility] Stop: 06/08/17 18:59 Last Admin: 04/12/17 07:43 Dose: 2.5 mg Aspirin (Ecotrin) [address] [facility] Stop: 06/09/17 08:59 Last Admin: 04/12/17 09:03 Dose: 81 mg Cholecalciferol (Vitamin D3) 1,[address] [facility] Stop: 06/09/17 11:59 Last Admin: 04/12/17 09:03 Dose: 1,000 iu Heparin Sodium (Porcine) (Heparin) 5,[address] [facility] Stop: 06/09/17 20:59 Last Admin: 04/12/17 09:47 Dose: 5,000 units Levofloxacin (Levaquin Pb) 500 mg in 100 mls @ 100 mls/hr IV Q24HR [facility] Stop: 06/08/17 20:59 Last Admin: 04/11/17 22:20 Dose: 100 mls/hr Dextrose/Sodium Chloride (D5-0.9%Ns) 1,000 mls @ 60 mls/hr IV .[id number] [facility] Stop: 06/08/17 18:44 Last Admin: 04/12/17 09:02 Dose: 60 mls/hr Ipratropium [place] (Atrovent Neb 0.5mg/2.5ml) [address] [facility] Stop: 06/08/17 18:59 Last Admin: 04/12/17 07:43 Dose: 0.5 mg Ipratropium [place] (Atrovent Neb 0.5mg/2.5ml) 0.[address] [facility] Stop: 06/10/17 10:59 Levothyroxine Sodium (Synthroid) 0.[address] [facility] Stop: 06/09/17 07:29 Last Admin: 04/12/17 09:02 Dose: 0.3 mg Meclizine HCl (Antivert) 25 mg PO DAILY PRN PRN Reason: Nausea / Vomiting Stop: 06/08/17 18:32 Methylprednisolone Sodium Succinate (Solu-Medrol) [address] [facility] Stop: 06/08/17 20:59 Last Admin: 04/12/17 06:29 Dose: 80 mg Ondansetron HCl (Zofran) 4 mg IV Q8H PRN PRN Reason: Nausea / Vomiting Stop: 06/08/17 18:32 Risperidone (Risperdal) 0.5 mg PO BID [facility] PRN Reason: Protocol Stop: 06/09/17 08:59 Last Admin: 04/12/17 09:03 Dose: 0.5 mg Sucralfate (Carafate) [address] [facility] Stop: 06/08/17 20:59 Last Admin: 04/12/17 09:03 Dose: 1 gm Zolpidem Tartrate (Ambien) 5 mg PO HS PRN PRN Reason: Insomnia Stop: 06/08/17 18:31 Last Admin: 04/09/17 21:00 Dose: 5 mg General: weak HEENT: NC/AT, PERRLA Neck: Supple Lungs: CTAB Cardiovascular: RRR, Normal S1, Normal S2, without murmur Abdomen: soft, non-tender, non-distended, positive bowel sound Extremities: clear Neurological: no change, alert, unsteady - Procedures Procedures: Procedures Procedure Code Date EGD BIOPSY SINGLE/MULTIPLE 80403 02/04/14 ESOPHAGOGASTRODUODENOSCOPY [EGD] W/CLOSED BIOPSY 45.16 02/04/14 NON-INVASIVE MECHANICAL VENTILATION 93.90 11/24/10 POS AIRWAY PRESSURE CPAP 87902 11/24/10 Internal Medicine Assmt/Plan - Assessment Assessment: COPD EXACERBATION S/P FALL CONTUSION ACUTE UTI CHRONIC BRONCHITIS GERD WITH ESOPHAGITIS MUSCULAR DYSTROPHY SCHIZOPHRENIA - Plan Plan: EMPIRIC IV ANTIBIOTICS BRONCHODILATORS LTAC EVAL FOR [place] FALL PRECAUTIONS CPM Nutritional Asmnt/Malnutr-PDOC - Dietary Evaluation Malnutrition Findings (Please click <Entered> for more info): Nutritional Asmnt/Malnutrition Start: 04/10/17 15: 14 Text: Status: Complete Freq: Document 04/10/17 15:14 GSUN (Rec: 04/10/17 15:40 GSUN [email or web address]) Nutritional Asmnt/Malnutrition Patient General Information Nutritional Screening High Risk Screening Diagnosis COPD exacerbation, s/p fall contusion, acute UTI, chronic bronchitis Pertinent Medical Hx/Surgical Hx GERD with esophagitis, muscular dystrophy, schizophrenia ER: asthma/COPD, PUD/GERD, dementia Subjective Information 72 year old female from SNF. Diet order "pureed, ground," FNS provided pureed diet as safer option. Pt's diet order at SNF: ground, [place] thick. Informed RN Dylan of diet order clarification needed, diet roder changed to pureed. Visited pt during lunch time, observed pt tolerating pureed diet well, 50% finished at time of visit. Pt is edentulous. Pt stated the food is good, denied nutritional concerns at this time, stated usually good appetite, enjoys food. Pt is a questionable historian, went off topic a lot and at times difficult to understand. Pt appeared obese, pt does not know UBW. Current Diet Order/ Nutrition Support Pureed, [place] thick liquids Pertinent Medications Vitamin D3, D5-0.9%ns, Synthroid, Solu-Medrol, Zofran Pertinent Labs Reviewed. Glucose 120H. Nutritional Hx/Data Height 5 ft 5 in Height (Calculated Centimeters) 165.1 Current Weight (lbs) 304 lb Weight (Calculated Kilograms) 137.9 Weight (Calculated Grams) 915176.1 [place] Body Weight 125 Weight Status Morbidly Obese GI Symptoms Food Allergies No Usual diet at home [facility] SNF: ground, [place] thick Current %PO Good (75-100%) Estimated Nutritional Goals BEE in Kcals: Adj wt of IBW Calories/Kcals/Kg AdjBW 170lb/77.2kg Kcals Calculated 1930-2316kcal (25-30kcal/kg) Protein: Adj wt of IBW Protein Calculated 77g (1g/kg) Fluid: ml 1930-2316ml (1ml/kcal) Nutritional Problem 1. Problem Problem Malnutrition related to Etiology unknown etiology, energy imbalance aeb Signs/Symptoms: morbid obesity, BMI 50.7 Malnutrition Related to Morbid Obesity Malnutrition related to morbid obesity BMI> or equal to 40 Query Text:(Any 1 Criteria met) Malnutrition related to morbid obesity Yes Intervention/Recommendation Comments 1. Continue with current diet order. Pt noted with good appetite. Expected Outcomes/Goals Expected Outcomes/Goals 1. PO intake to meet at least 75% of estimated nutritional needs.
[2017-04-12] MEDS: Levofloxacin 500mg/100mL 500 MG/100 ML BAG IV SCH (22:16)
[2017-04-13] MEDS: Albuterol Nebulizer 2.5mg/3mL HHN PRN (03:05)
[2017-04-13] MEDS: D5-0.9%NS 1,000 ML IV SCH (04:28)
[2017-04-13] MEDS: methylPREDNISolone SS 40 mg Vial IVP SCH ×2 (05:27→13:56)
[2017-04-13] MEDS: Levothyroxine 0.1 Mg Tab PO SCH (06:51)
[2017-04-13 07:25] LABS: ANION GAP 7.6 (7.0-16.0); BUN - UREA NITROGEN 20 mg/dL (7-25); CALCIUM SERUM 8.7 mg/dL (8.6-10.3); CHLORIDE 101 mEq/L (98-107); CREATININE - SERUM 0.5 mg/dL (0.6-1.2); GLUCOSE 127 mg/dL (70-105); POTASSIUM SERUM 4.6 mEq/L (3.5-5.1); SODIUM SERUM 137 mEq/L (136-145)
[2017-04-13 07:30] LABS: HEMATOCRIT 29.7 % (35.0-45.0); HEMOGLOBIN 9.2 gm/dL (11.7-16.1); MEAN CELL VOLUME 79.1 fl (81-100); MEAN CORPUSCULAR HEMOGLOBIN 24.5 pg (27.0-31.0); MEAN CORPUSCULAR HGB CONC 30.9 pg (28.0-36.0); MEAN PLATELET VOLUME 8.2 fl; PLATELET COUNT 245 Th/cmm (150-400); RED BLOOD COUNT 3.75 Mil/cmm (3.80-5.20); RED CELL DISTRIBUTION WIDTH 16.1 % (11.5-20.0)
[2017-04-13] MEDS: Albuterol Nebulizer 2.5mg/3mL HHN SCH ×3 (07:48→15:03)
[2017-04-13] MEDS: Ipratropium Neb 0.5 mg/2.5 mL UD IH SCH ×3 (07:48→15:03)
[2017-04-13 08:19] LABS: WHITE BLOOD COUNT 4.9 Th/cmm (4.8-10.8)
[2017-04-13 10:08] LABS: BAND NEUTROPHILE 4 % (0-10); EOSINOPHIL 1 % (0-5); NEUTROPHILS 79 % (40-80); TOTAL CELLS COUNTED 100
[2017-04-13 10:09] LABS: MICROCYTOSIS 1+; PLATELET ESTIMATE ADEQUATE (NORMAL); PLATELET MORPHOLOGY NORMAL (NORMAL)
--- NOTE | 2017-04-13 15:04 | Internal Medicine Prog Note ---
Internal Medicine Subjective - Subjective Service Date: 04/13/17 (dictated [id number] dc summary ) Patient is:: awake Patient Complaints of:: headache Per staff patient has:: other (LEFT ANKLE PAIN) Internal Medicine Objective - Results Result Diagrams: 04/13/17 06:10 04/13/17 06:10 Recent Labs: Laboratory Last Values WBC 4.9 Th/cmm (4.8-10.8) D 04/13/17 06:10 RBC 3.75 Mil/cmm (3.80-5.20) L 04/13/17 06:10 Hgb 9.2 gm/dL (11.7-16.1) L 04/13/17 06:10 Hct 29.7 % (35.0-45.0) L 04/13/17 06:10 MCV 79.1 fl (81-100) L 04/13/17 06:10 MCH 24.5 pg (27.0-31.0) L 04/13/17 06:10 MCHC Differential 30.9 pg (28.0-36.0) 04/13/17 06:10 RDW 16.1 % (11.5-20.0) 04/13/17 06:10 Plt Count 245 Th/cmm (150-400) 04/13/17 06:10 MPV 8.2 fl 04/13/17 06:10 Band Neutrophils % 4 % (0-10) 04/13/17 06:10 Neutrophils (Manual) 79 % (40-80) 04/13/17 06:10 Lymphocytes 7 % (20-50) L 04/13/17 06:10 Monocytes 9 % (2-10) 04/13/17 06:10 Eosinophils 1 % (0-5) 04/13/17 06:10 Basophils 3 % (0-3) 04/09/17 15:50 Platelet Estimate ADEQUATE (NORMAL) 04/13/17 06:10 Platelet Morphology NORMAL (NORMAL) 04/13/17 06:10 Anisocytosis 1+ 04/12/17 05:55 Microcytosis 1+ 04/13/17 06:10 RBC Morph Micro Appear ABNORMAL (NORMAL) 04/13/17 06:10 PT 9.9 SECONDS (9.5-11.5) 04/09/17 15:50 INR 0.95 (0.5-1.4) 04/09/17 15:50 PTT (Actin FS) 23.6 SECONDS (26.0-38.0) L 04/09/17 15:50 Specimen Source Arterial 04/09/17 15:39 Sample Site Right Radial 04/09/17 15:39 pH 7.42 (7.35-7.45) 04/09/17 15:39 pCO2 59.0 mmHg (35.0-45.0) H* 04/09/17 15:39 pO2 47.0 mmHg (80.0-100.0) L* 04/09/17 15:39 HCO3 33.6 mEq/L (20.0-26.0) H 04/09/17 15:39 Base Excess 11.6 mEq/L (-3.0-3.0) H 04/09/17 15:39 O2 Saturation 83.0 % (92.0-100.0) L 04/09/17 15:39 Jagjit Test PASS 04/09/17 15:39 Inspired O2 21 04/09/17 15:39 Critical Value PW 04/09/17 15:39 Sodium 137 mEq/L (136-145) 04/13/17 06:10 Potassium 4.6 mEq/L (3.5-5.1) 04/13/17 06:10 Chloride 101 mEq/L (98-107) 04/13/17 06:10 Carbon Dioxide 33.0 mEq/L (21.0-31.0) H 04/13/17 06:10 Anion Gap 7.6 (7.0-16.0) 04/13/17 06:10 BUN 20 mg/dL (7-25) 04/13/17 06:10 Creatinine 0.5 mg/dL (0.6-1.2) L 04/13/17 06:10 Est GFR ( Amer) > 60.0 ml/min (>90) 04/13/17 06:10 Est GFR (Non-Af Amer) > 60.0 ml/min 04/13/17 06:10 BUN/Creatinine Ratio 40.0 04/13/17 06:10 Glucose 127 mg/dL (70-105) H 04/13/17 06:10 Calcium 8.7 mg/dL (8.6-10.3) 04/13/17 06:10 Total Bilirubin 0.2 mg/dL (0.3-1.0) L 04/09/17 15:50 AST 13 U/L (13-39) 04/09/17 15:50 ALT 7 U/L (7-52) 04/09/17 15:50 Alkaline Phosphatase 65 U/L (34-104) 04/09/17 15:50 Troponin I < 0.01 ng/mL (0.01-0.05) L 04/09/17 15:50 Total Protein 6.0 gm/dL (6.0-8.3) 04/09/17 15:50 Albumin 3.6 gm/dL (3.7-5.3) L 04/09/17 15:50 Globulin 2.4 gm/dL 04/09/17 15:50 Albumin/Globulin Ratio 1.5 (1.0-1.8) 04/09/17 15:50 TSH 0.65 uIU/ml (0.34-5.60) 04/09/17 15:50 Urine Source CLEAN C 04/09/17 16:47 Urine Color YELLOW 04/09/17 16:47 Urine Clarity CLOUDY (CLEAR) H 04/09/17 16:47 Urine pH 8.0 04/09/17 16:47 Ur Specific [place] 1.010 (1.005-1.030) 04/09/17 16:47 Urine Protein NEGATIVE mg/dL (NEGATIVE) 04/09/17 16:47 Urine Glucose (UA) NEGATIVE mg/dL (NEGATIVE) 04/09/17 16:47 Urine Ketones NEGATIVE mg/dL (NEGATIVE) 04/09/17 16:47 Urine Blood NEGATIVE (NEGATIVE) 04/09/17 16:47 Urine Nitrate NEGATIVE (NEGATIVE) 04/09/17 16:47 Urine Bilirubin NEGATIVE (NEGATIVE) 04/09/17 16:47 Urine Urobilinogen 0.2 E.U./dL (0.2 - 1.0) 04/09/17 16:47 Ur Leukocyte Esterase LARGE (NEGATIVE) H 04/09/17 16:47 Urine RBC 0-2 /hpf (0-5) 04/09/17 16:47 Urine WBC 25-50 /hpf (0-5) H 04/09/17 16:47 Ur Epithelial Cells MANY /lpf (FEW) 04/09/17 16:47 Urine Bacteria MANY /hpf (NONE SEEN) 04/09/17 16:47 - Physical Exam Vitals and I&O: Vital Signs Temp 97.7 F 04/13/17 12:06 Pulse 83 04/13/17 12:06 Resp 17 04/13/17 12:06 BP 136/73 04/13/17 12:06 Pulse Ox 94 04/13/17 12:06 Intake & Output 04/12/17 04/13/17 04/13/17 18:59 06:59 18:59 Intake Total 1000 1200 Balance 1000 1200 Weight (lbs) 305 lb 6.4 oz Intake: Intake, IV Amount 1000 1100 D5-0.9%Ns 1,000 ml @ 60 1000 1000 mls/hr IV .[id number] [facility] Rx #:[id number] Levofloxacin 500mg/100mL 100 500 mg In 100 ml @ 100 mls/hr IV Q24HR [facility] Rx#: [id number] Oral 100 Other: # Voids 1 Stool Characteristics Soft Soft Formed Formed Active Medications: Current Medications Acetaminophen (Tylenol) 325 mg PO Q6HR PRN PRN Reason: Pain or Fever > 101 Stop: 06/08/17 18:31 Acetaminophen (Tylenol) 650 mg PO Q4HR PRN PRN Reason: Pain or Fever >101 Stop: 06/08/17 18:31 Al Hydrox/Mg Hydrox/Simethicone (Maalox) 30 ml PO Q6H PRN PRN Reason: Dyspepsia Stop: 06/08/17 18:32 Last Admin: 04/11/17 02:54 Dose: 30 ml Albuterol Sulfate (Albuterol 2.5mg/3ml Neb Ud) 2.5 mg HHN Q6H PRN PRN Reason: sob Stop: 06/08/17 18:31 Last Admin: 04/13/17 03:05 Dose: 2.5 mg Albuterol Sulfate (Albuterol 2.5mg/3ml Neb Ud) 2.5 mg HHN QIDRT [facility] Stop: 06/08/17 18:59 Last Admin: 04/13/17 15:03 Dose: 2.5 mg Aspirin (Ecotrin) 81 mg PO DAILY [facility] Stop: 06/09/17 08:59 Last Admin: 04/13/17 09:08 Dose: 81 mg Cholecalciferol (Vitamin D3) 1,000 iu PO DAILY [facility] Stop: 06/09/17 11:59 Last Admin: 04/13/17 09:08 Dose: 1,000 iu Heparin Sodium (Porcine) (Heparin) 5,000 units SUBQ Q12HR [facility] Stop: 06/09/17 20:59 Last Admin: 04/13/17 09:08 Dose: 5,000 units Levofloxacin (Levaquin Pb) 500 mg in 100 mls @ 100 mls/hr IV Q24HR [facility] Stop: 06/08/17 20:59 Last Infusion: 04/13/17 05:27 Dose: Infused Dextrose/Sodium Chloride (D5-0.9%Ns) 1,000 mls @ 60 mls/hr IV .[id number] [facility] Stop: 06/08/17 18:44 Last Admin: 04/13/17 04:28 Dose: 60 mls/hr Ipratropium [place] (Atrovent Neb 0.5mg/2.5ml) 0.5 mg IH QIDRT [facility] Stop: 06/08/17 18:59 Last Admin: 04/13/17 15:03 Dose: 0.5 mg Ipratropium [place] (Atrovent Neb 0.5mg/2.5ml) 0.5 mg HHN QIDRT [facility] Stop: 06/10/17 10:59 Levothyroxine Sodium (Synthroid) 0.3 mg PO QDAC [facility] Stop: 06/09/17 07:29 Last Admin: 04/13/17 06:51 Dose: 0.3 mg Lorazepam (Ativan) 0.5 mg PO Q6HR PRN; Protocol PRN Reason: Anxiety Stop: 06/11/17 18:06 Meclizine HCl (Antivert) 25 mg PO DAILY PRN PRN Reason: Nausea / Vomiting Stop: 06/08/17 18:32 Methylprednisolone Sodium Succinate (Solu-Medrol) 80 mg IVP Q8HR [facility] Stop: 06/08/17 20:59 Last Admin: 04/13/17 13:56 Dose: 80 mg Ondansetron HCl (Zofran) 4 mg IV Q8H PRN PRN Reason: Nausea / Vomiting Stop: 06/08/17 18:32 Risperidone (Risperdal) 0.5 mg PO BID [facility] PRN Reason: Protocol Stop: 06/09/17 08:59 Last Admin: 04/13/17 09:08 Dose: 0.5 mg Sucralfate (Carafate) 1 gm PO ACHS [place] Stop: 06/08/17 20:59 Last Admin: 04/13/17 13:56 Dose: 1 gm Zolpidem Tartrate (Ambien) 5 mg PO HS PRN PRN Reason: Insomnia Stop: 06/08/17 18:31 Last Admin: 04/09/17 21:00 Dose: 5 mg General: weak HEENT: NC/AT, PERRLA Neck: Supple Lungs: CTAB Cardiovascular: RRR, Normal S1, Normal S2, without murmur Abdomen: soft, non-tender, non-distended, positive bowel sound Extremities: clear Neurological: no change, alert, unsteady - Procedures Procedures: Procedures Procedure Code Date EGD BIOPSY SINGLE/MULTIPLE 55530 02/04/14 ESOPHAGOGASTRODUODENOSCOPY [EGD] W/CLOSED BIOPSY 45.16 02/04/14 NON-INVASIVE MECHANICAL VENTILATION 93.90 11/24/10 POS AIRWAY PRESSURE CPAP 15265 11/24/10 Internal Medicine Assmt/Plan - Assessment Assessment: COPD EXACERBATION S/P FALL CONTUSION ACUTE UTI CHRONIC BRONCHITIS GERD WITH ESOPHAGITIS MUSCULAR DYSTROPHY SCHIZOPHRENIA - Plan Plan: EMPIRIC IV ANTIBIOTICS BRONCHODILATORS LTAC EVAL FOR [place] PRECAUTIONS CPM Nutritional Asmnt/Malnutr-PDOC - Dietary Evaluation Malnutrition Findings (Please click <Entered> for more info): Nutritional Asmnt/Malnutrition Start: 04/10/17 15: 14 Text: Status: Complete Freq: Document 04/10/17 15:14 GSUN (Rec: 04/10/17 15:40 GSUN [facility]) Nutritional Asmnt/Malnutrition Patient General Information Nutritional Screening High Risk Screening Diagnosis COPD exacerbation, s/p fall contusion, acute UTI, chronic bronchitis Pertinent Medical Hx/Surgical Hx GERD with esophagitis, muscular dystrophy, schizophrenia ER: asthma/COPD, PUD/GERD, dementia Subjective Information 72 year old female from SNF. Diet order "pureed, ground," FNS provided pureed diet as safer option. Pt's diet order at SNF: ground, [place] thick. Informed RN Dylan of diet order clarification needed, diet roder changed to pureed. Visited pt during lunch time, observed pt tolerating pureed diet well, 50% finished at time of visit. Pt is edentulous. Pt stated the food is good, denied nutritional concerns at this time, stated usually good appetite, enjoys food. Pt is a questionable historian, went off topic a lot and at times difficult to understand. Pt appeared obese, pt does not know UBW. Current Diet Order/ Nutrition Support Pureed, [place] thick liquids Pertinent Medications Vitamin D3, D5-0.9%ns, Synthroid, Solu-Medrol, Zofran Pertinent Labs Reviewed. Glucose 120H. Nutritional Hx/Data Height 5 ft 5 in Height (Calculated Centimeters) 165.1 Current Weight (lbs) 304 lb Weight (Calculated Kilograms) 137.9 Weight (Calculated Grams) 173920.1 [place] Body Weight 125 Weight Status Morbidly Obese GI Symptoms Food Allergies No Usual diet at home [facility]: ground, [place] thick Current %PO Good (75-100%) Estimated Nutritional Goals BEE in Kcals: Adj wt of IBW Calories/Kcals/Kg AdjBW 170lb/77.2kg Kcals Calculated 1930-2316kcal (25-30kcal/kg) Protein: Adj wt of IBW Protein Calculated 77g (1g/kg) Fluid: ml 1930-2316ml (1ml/kcal) Nutritional Problem 1. Problem Problem Malnutrition related to Etiology unknown etiology, energy imbalance aeb Signs/Symptoms: morbid obesity, BMI 50.7 Malnutrition Related to Morbid Obesity Malnutrition related to morbid obesity BMI> or equal to 40 Query Text:(Any 1 Criteria met) Malnutrition related to morbid obesity Yes Intervention/Recommendation Comments 1. Continue with current diet order. Pt noted with good appetite. Expected Outcomes/Goals Expected Outcomes/Goals 1. PO intake to meet at least 75% of estimated nutritional needs.
--- NOTE | 2017-04-13 21:06 | Progress Notes ---
DATE: 04/13/2017 DISCHARGE DIAGNOSES: Chronic obstructive pulmonary disease exacerbation, status post fall, confusion, acute urinary tract infection, chronic bronchitis, gastroesophageal reflux disease with esophagitis, muscular dystrophy, schizophrenia. HISTORY OF PRESENT ILLNESS: A 72-year-old female resident of [facility], according to nursing staff at [facility] the patient was being moved from bed to the chair and injured her right ankle on the bed rail. The patient was noted to have shortness of breath for this reason the patient is admitted to the med/surg unit. PHYSICAL EXAMINATION: GENERAL: The patient is well developed, well nourished, no acute distress. VITAL SIGNS: Stable. HEENT: Normocephalic, atraumatic. NECK: Supple. No masses. LUNGS: Clear bilaterally. HEART: Regular rhythm. ABDOMEN: Soft, nontender. HOSPITAL COURSE: During the hospital stay, the patient was admitted to the med/surg unit. The patient had an Ortho consult. The patient had an ankle x-ray done and the impression is comminuted mildly displaced fracture involving the distal fibula and lateral malleolus. Since the patient had UTI, the patient was kept on IV antibiotics of Levaquin 500 mg. The patient's electrolytes levels are being monitored as well. The patient was stable for discharge. CONDITION UPON DISCHARGE: Fair. DISPOSITION: The patient is going back to board and care. JOB# [id number]
--- NOTE | 2017-04-13 22:07 | Consultation ---
DATE OF CONSULTATION: 04/12/2017 The patient was seen, chart reviewed, discussed with staff. HISTORY OF PRESENT ILLNESS: The patient is a 72-year-old female with a history of mental illness and multiple medical problems, currently admitted to the hospital on medical floor with COPD exacerbation, has been somewhat anxious and guarded. The patient is confused. The patient has a history of schizophrenia, but has been passively accepting treatment. No aggressive behavior. PAST PSYCHIATRIC HISTORY: Schizophrenia, multiple psychiatric hospitalizations. PSYCHOSOCIAL HISTORY: The patient resides in a penitentiary. She requires complete care. MENTAL STATUS EXAMINATION: The patient is in bed, definitive eye contact. Speech is monotonous, minimal short sentences. Affect is constricted. Insight is limited. The patient has no auditory hallucinations at this time. She is oriented to person, knew she was in the hospital, did not know the name of the hospital, she was having difficulty knowing her age, but she was able to tell her date of . ASSESSMENT: Schizophrenia, paranoid type. PLAN: We will continue risperidone 0.5 mg p.o. b.i.d., use Ativan 0.5 mg p.o. q. 6 hours p.r.n. anxiety. We will follow the patient closely while in the hospital. Thank you for the consultation. [facility]# [id number]
--- NOTE | 2017-04-14 08:34 | Consultation ---
DATE OF CONSULTATION: 04/13/2017 HISTORY OF PRESENT ILLNESS: A 72-year-old female transferred from [facility], ____ medical floor for left ankle pain and some shortness of breath. The patient has a history of schizophrenia and psychosis, is being passively cooperative, taking her medications, have some anxiety. The patient was started on small dose of Ativan to help with her symptoms. The patient does not have any suicidal thoughts. PAST PSYCHIATRIC HISTORY: Schizophrenia, prior hospitalizations. ALLERGIES: No known drug allergies. PSYCHOSOCIAL HISTORY: The patient resides in a care home. She requires complete care. MENTAL STATUS EXAMINATION: The patient was cooperative, makes fair eye contact. Speech is monotonous. Affect is constricted. The patient slightly guarded towards the surroundings, knew she was in the hospital, did not know the name of the hospital, she was able to tell her age. ASSESSMENT: Schizophrenia, paranoid type. PLAN: We will continue current medication management. Continue to monitor closely. The patient is receiving risperidone 0.5 mg p.o. b.i.d., which appears to be sufficient. We will monitor for any episodes of agitation. The patient is probably somewhat anxious for being in the hospital, lorazepam should be sufficient. Thank you for the consultation. [facility]# [id number]
== END 2017-04-13 17:40 | disposition home or self-care (01) | DRG 189 ==
LOC: ER 15:15 → MSI 17:10 → ER 17:24
PROVIDERS: ADMIT Internal Medicine; ATTEND Internal Medicine
PROC: 3E0234Z Introduction of Serum, Toxoid and Vaccine into Muscle, Percutaneous Approach (ICD-10-PCS; principal; 2017-04-09)
DX: J96.21 Acute and chronic respiratory failure with hypoxia (principal); G71.0 Muscular dystrophy; F03.90 Unspecified dementia, unspecified severity, without behavioral disturbance, psychotic disturbance, mood disturbance, and anxiety; N39.0 Urinary tract infection, site not specified; J44.1 Chronic obstructive pulmonary disease with (acute) exacerbation; Z68.43 Body mass index [BMI] 50.0-59.9, adult; W18.30XA Fall on same level, unspecified, initial encounter; S90.02XA Contusion of left ankle, initial encounter; F20.9 Schizophrenia, unspecified; E66.9 Obesity, unspecified; K21.0 Gastro-esophageal reflux disease with esophagitis; Y92.89 Other specified places as the place of occurrence of the external cause; Y99.8 Other external cause status; Z79.899 Other long term (current) drug therapy; Z23 Encounter for immunization; Y93.89 Activity, other specified
CPT/HCPCS: 36415-UA; 36600-90; 71010-TC; 73610-TC; 80048-TC; 80053-TC; 81001-TC; 82803-TC; 84443-TC; 84484-TC; 85007-TC; 85027-TC; 85610-TC; 85730-TC; 87086-90; 90779; 94640; 94760; 97530; J1644; J1956; J2920; J7042; J7613; X3904